=== PATIENT | female | born 1990 ===

== ENCOUNTER 2020-01-10 05:17 | Inpatient (IN) ==
[2020-01-10] MEDS ORDERED: ONDANSETRON 4 MG/2 ML VIAL IV PRN (05:27)
[2020-01-10] MEDS ORDERED: CITRIC ACID/SODIUM CITRATE 30 ML UDCUP PO ONE (05:30)
[2020-01-10] MEDS ORDERED: fentaNYL 2 MCG/ROPIV 0.2% EPID 100 ML EPIDURAL SCH (05:30)
[2020-01-10] MEDS ORDERED: LACTATED RINGERS 1,000 ML IV ONE (05:30)
[2020-01-10] MEDS ORDERED: NALOXONE 0.4 MG/ML VIAL IV PRN (05:30)
[2020-01-10] MEDS ORDERED: diphenhydrAMINE 50 MG/1 ML VIAL IV PRN (05:30)
[2020-01-10] MEDS ORDERED: LACTATED RINGERS 1,000 ML IV SCH ×3 (05:30)
[2020-01-10] MEDS ORDERED: ONDANSETRON 4 MG/2 ML VIAL IV ONE (05:30)
[2020-01-10] MEDS ORDERED: ePHEDrine 50 MG/ML VIAL IV PRN (05:30)
[2020-01-10] MEDS ORDERED: FAMOTIDINE 20 MG/2 ML VIAL IV ONE (05:30)
[2020-01-10] MEDS ORDERED: BETAMETH SODIUM PHOS/ACETATE 30 MG/5 ML VIAL IM SCH (06:00)
[2020-01-10 06:12] LABS: Basophils % 0.5 % (0.0-0.8); Eosinophils % 0.2 % (0.00-10.9); Hematocrit 40.9 VOL% (35.7-47.0); Hemoglobin 13.9 GM/DL (12.0-16.0); Immature Granulocytes % 0.3 %; Immature Granulocytes Absolute 0.02 #; Lymphocytes # 2.1 10*3/uL (1.4-4.0); Lymphocytes % 33.9 % (21.3-54.2); Mean Corpuscular Volume 82.5 FL (87-102); Monocytes % 9.5 % (1.7-12.7); Neutrophils % 55.6 % (38.7-73.9); Platelet Count 219 T/CUMM (130-400); Red Blood Count 4.96 MC/CUMM (3.8-5.5); Red Cell Distribution Width 12.9 % (9.3-17.3); White Blood Count 6.2 T/CUMM (4-12)
[2020-01-10] MEDS ORDERED: OXYTOCIN/LR 20 UNIT/1,000 ML BAG IV PRN (08:12)
[2020-01-10 08:30] LABS: HIV Antigen/Antibody Result Nonreactive (Nonreactive)
[2020-01-10] MEDS ORDERED: AMPICILLIN INJ 1,000 MG in SODIUM CHLORIDE 0.9% 100 ML IV SCH (08:30)
[2020-01-10 08:38] LABS: Hepatitis B Surface Ag Quant < 0.10 Index; Hepatitis B Surface Ag Result Negative (Negative)
[2020-01-10 08:52] LABS: Alanine Aminotransferase 25 U/L (13-56); Albumin 1.6 G/DL (3.4-5.0); Alkaline Phosphatase 191 U/L (45-117); Aspartate Amino Transferase 27 U/L (0-37); Bilirubin,Total < 0.39 MG/DL (0.2-1.0); Blood Urea Nitrogen 13 MG/DL (7-18); Calcium 8.4 MG/DL (8.5-10.1); Estimated Glom Filtration Rate 126 ML/MIN; Glucose 80 MG/DL (74-106); Osmolality,Calculated 279.3 MOS/KG (273-304); Total Protein 6.5 G/DL (6.4-8.3)
[2020-01-10] MEDS ORDERED: miSOPROStoL 200 MCG TABLET ONE ×2 (08:56→09:47)
[2020-01-10] MEDS ORDERED: LIDOCAINE 1% 50 ML VIAL ONE (08:56)
[2020-01-10] MEDS ORDERED: METHYLERGONOVINE 0.2 MG/1 ML AMP ONE (08:57)
[2020-01-10] MEDS ORDERED: INFLUENZA VIRUS VACCINE 0.5 ML SYRINGE IM ONE (09:00)
[2020-01-10] MEDS ORDERED: GLUCAGON 1 MG VIAL IM PRN (09:30)
[2020-01-10] MEDS ORDERED: DEXTROSE 50% 25 GM/50 ML VIAL IV PRN (09:30)
[2020-01-10 09:43] LABS: Cord Venous Blood HCO3 22.6 MMOL/L; Cord Venous Blood PCO2 47.7 MMHG; Cord Venous Blood PO2 32.1
[2020-01-10 09:59] LABS: Bacteria,Urine Occasional /HPF (Few); Bilirubin,Urine Negative (Negative); Blood, Urine Negative (Negative); Glucose,Urine (UA) Negative (Negative); Ketones,Urine Negative (Negative); Mucus,Urine Occasional /LPF (Occasional); Nitrite,Urine Negative (Negative); Protein,Urine 30 MG/DL; RBC,Urine 1 /HPF (0-4); Squamous Epithelial Cell,Urine Occasional /HPF (0-10); Urine Appearance CLEAR (Clear); Urine Color Yellow (Yellow); Urine Specific Gravity 1.025 (1.001-1.035); WBC,Urine 6 /HPF (0-6)
[2020-01-10] MEDS ORDERED: OXYTOCIN/LR 20 UNIT/1,000 ML BAG IV ONE (11:28)
[2020-01-10] MEDS ORDERED: BISACODYL 10 MG SUPP RECTAL PRN (11:28)
[2020-01-10] MEDS ORDERED: MEASLES/MUMPS/RUBELLA VACCINE 0.5 ML VIAL SUBCUT ONE (11:28)
[2020-01-10] MEDS ORDERED: LANOLIN 50% CREAM 0.3 OZ TUBE TOP PRN (11:28)
[2020-01-10] MEDS ORDERED: WITCH HAZEL PADS 100/JAR TOP PRN (11:28)
[2020-01-10] MEDS ORDERED: RHO(D) IMMUNE GLOBULIN 300 MCG SYRINGE IM ONE (11:28)
[2020-01-10] MEDS ORDERED: ACETAMINOPHEN 325 MG TABLET PO PRN (11:28)
[2020-01-10] MEDS ORDERED: HYDROCORTISONE 2.5% RECTAL CREAM 30 GM TUBE TOP PRN (11:28)
[2020-01-10] MEDS ORDERED: BENZOCAINE 20%/MENTHOL 0.5% SPRAY 56 GM CAN TOP PRN (11:28)
[2020-01-10] MEDS ORDERED: DIPH/TET/ACEL PERT BOOSTER VACCINE 0.5 ML VIAL IM ONE (11:28)
[2020-01-10] MEDS ORDERED: oxyCODONE/ACETAMINOPHEN 5-325 MG TABLET PO PRN ×2 (11:28)
[2020-01-10] MEDS ORDERED: IBUPROFEN 800 MG TABLET PO PRN (11:28)
[2020-01-10] MEDS ORDERED: INSULIN REGULAR 100 UNIT/ML SUBCUT SCH (11:30)
[2020-01-10] MEDS: INSULIN REGULAR 100 UNIT/ML SUBCUT SCH ×3 (11:34→21:35)
[2020-01-10] MEDS: DOCUSATE SODIUM 100 MG CAPSULE PO SCH (21:18)
[2020-01-11 06:13] LABS: Basophils % 0.1 % (0.0-0.8); Hematocrit 34.6 VOL% (35.7-47.0); Hemoglobin 11.8 GM/DL (12.0-16.0); Immature Granulocytes % 0.5 %; Immature Granulocytes Absolute 0.06 #; Lymphocytes # 2.1 10*3/uL (1.4-4.0); Lymphocytes % 16.2 % (21.3-54.2); Mean Corpuscular HGB Conc 34.1 GM/DL (32-36); Mean Platelet Volume 12.4 FL (9.6-12.0); Neutrophils % 77.2 % (38.7-73.9); Platelet Count 205 T/CUMM (130-400); Red Blood Count 4.12 MC/CUMM (3.8-5.5); Red Cell Distribution Width 13.1 % (9.3-17.3); White Blood Count 12.7 T/CUMM (4-12)
[2020-01-11] MEDS: DOCUSATE SODIUM 100 MG CAPSULE PO SCH ×2 (09:21→20:54)
[2020-01-11] MEDS: INSULIN REGULAR 100 UNIT/ML SUBCUT SCH (20:53)
[2020-01-12 08:11] VITALS: BP 128/76
[2020-01-12] MEDS: INSULIN REGULAR 100 UNIT/ML SUBCUT SCH (08:12)
[2020-01-12] MEDS ORDERED: INFLUENZA VIRUS VACCINE 0.5 ML SYRINGE IM ONE (08:45)
[2020-01-12] MEDS: DOCUSATE SODIUM 100 MG CAPSULE PO SCH (08:56)
== END 2020-01-12 10:55 | disposition home or self-care (01) | DRG 560 ==
LOC: N.LDOUT 05:17 → N.LD 05:19 → N.OB 11:27
PROVIDERS: ADMIT Obstetrics & Gynecology; ATTEND Obstetrics & Gynecology